=== PATIENT | female | born 1945 ===

== ENCOUNTER → 2018-05-29 | Outpatient (REF) | LOC: ZZSENDIN 09:30 | PROVIDERS: ATTEND Internal Medicine | DX: L02.818 Cutaneous abscess of other sites (principal) | CPT/HCPCS: 88305; 88311 ==

== ENCOUNTER → 2018-07-10 | Outpatient (REF) | payer BC | LOC: ZZSENDIN 11:00 | PROVIDERS: ATTEND Internal Medicine | DX: L98.498 Non-pressure chronic ulcer of skin of other sites with other specified severity (principal) | CPT/HCPCS: 88305 ==

== ENCOUNTER → 2018-11-23 | Outpatient (REF) | payer MEDICARE, BC | LOC: ZZSENDIN 12:00 | DX: S31.000A Unspecified open wound of lower back and pelvis without penetration into retroperitoneum, initial encounter (principal); B99.9 Unspecified infectious disease | CPT/HCPCS: 88305 ==